=== PATIENT | female | born 1955 | race Two or more races ===

== ENCOUNTER → 2017-12-27 | Day surgery (SDC) | payer OTHER ==
[~2017-12-27] MED LIST: BRIM5DRO3 OP; DORZ10DR7 OP; DULO30CA2 PO; HYDROmorphone 2 MG/ML VIAL IV PRN; IV RINGERS,LACTATED 1000ML 1,000 ML IV SCH; LATA7.5D OP; LIDOCAINE 1% PF 2 ML VIAL. ID PRN; METF500T16 PO; MORPHINE SULFATE 2 MG/ML VIAL. IV PRN; ONDANSETRON PF 4 MG/2 ML VIAL. IV PRN; PRAV40TA2 PO; PROCHLORPERAZINE 10 MG/2 ML VIAL. IV PRN; PROPOFOL 40 ML IV ONE; ROPI0.5T PO; TIMO10DR5 OP; fentaNYL PF VIAL 100 MCG/2 ML VIAL IV PRN
[2017-12-27 08:30] VITALS: BP 104/57
== END | disposition home or self-care (01) ==
LOC: SURG 07:07
PROVIDERS: ATTEND Internal Medicine Gastroenterology
DX: Z12.11 Encounter for screening for malignant neoplasm of colon (principal); K57.30 Diverticulosis of large intestine without perforation or abscess without bleeding; K64.0 First degree hemorrhoids; E11.9 Type 2 diabetes mellitus without complications; M19.90 Unspecified osteoarthritis, unspecified site; F41.9 Anxiety disorder, unspecified; M79.7 Fibromyalgia; Z79.84 Long term (current) use of oral hypoglycemic drugs; Z79.899 Other long term (current) drug therapy; Z90.710 Acquired absence of both cervix and uterus; Z98.890 Other specified postprocedural states
CPT/HCPCS: 45378; J2704